=== PATIENT | male | born 1960 | race Caucasian/White ===

== ENCOUNTER 2018-01-19 01:29 | Emergency (ER) | payer OTHER ==
[~2018-01-19] VITALS: Ht 177.8 cm; Wt 75.8 kg
[2018-01-19 01:52] LABS: BASOPHIL (%) 0.7 % (0-1); BASOPHIL COUNT 0.1 K/uL (0-0.1); EOSINOPHIL (%) 2.2 % (0-5); EOSINOPHIL COUNT 0.3 K/uL (0-0.3); HEMATOCRIT 43.8 % (38.0-50.0); HEMOGLOBIN 15.4 G/DL (12.5-16.6); IMMATURE GRANULOCYTE (%) 1.1 % (0.0-0.7); LYMPHOCYTE (%) 21.4 % (15-42); LYMPHOCYTE COUNT 2.7 K/uL (1.0-2.8); MCH 32.2 PG (29.0-34.0); MCHC 35.2 G/DL (30.0-36.0); MCV 91.6 FL (86-99); MONOCYTE (%) 5.1 % (3-12); MONOCYTE COUNT 0.6 K/uL (0-0.8); NEUTROPHIL (%) 69.5 % (45-76); NEUTROPHIL COUNT 8.6 K/uL (1.8-6.4); PLATELET COUNT 248 K/uL (156-360); RBC DIS.WIDTH-SD 40.4 % (39-53); RED BLOOD COUNT 4.78 M/uL (4.00-5.50); WHITE BLOOD COUNT 12.4 K/uL (4.1-10.2)
[2018-01-19 02:00] LABS: AMYLASE 233 IU/L (1-118); CHLORIDE 103 mEq/L (99-109)
[2018-01-19 02:01] LABS: SODIUM 136 mEq/L (136-147)
[2018-01-19 02:02] LABS: GLUCOSE 103 mg/dL (70-99)
[2018-01-19 02:05] LABS: SERUM ETHYL ALCOHOL 209 mg/dL
[2018-01-19 02:06] LABS: CREATININE 0.9 mg/dL (0.6-1.3); GFR ESTIMATE (CALCULATED) > 59 mL/min/ (58.99-99999)
[2018-01-19 02:07] LABS: UREA NITROGEN (BUN) 11 mg/dL (9-23)
[2018-01-19 02:09] LABS: LIPASE 34 U/L (1.0-51.0)
[2018-01-19 03:00] LABS: INTER. NORMALIZED RATIO 0.9
[2018-01-19 03:03] LABS: PTT 25.8 SEC (25-37)
== END 2018-01-19 04:29 | disposition short-term general hospital (02) ==
LOC: TRA 01:29
PROVIDERS: Emergency Medicine
PROC: 3E0234Z Introduction of Serum, Toxoid and Vaccine into Muscle, Percutaneous Approach (ICD-10-PCS; principal; 2018-01-19)
DX: S05.41XA Penetrating wound of orbit with or without foreign body, right eye, initial encounter (principal); S22.41XA Multiple fractures of ribs, right side, initial encounter for closed fracture; S22.019A Unspecified fracture of first thoracic vertebra, initial encounter for closed fracture; S12.650A Other traumatic displaced spondylolisthesis of seventh cervical vertebra, initial encounter for closed fracture; S02.40EA Zygomatic fracture, right side, initial encounter for closed fracture; S02.19XA Other fracture of base of skull, initial encounter for closed fracture; S02.412A LeFort II fracture, initial encounter for closed fracture; S02.413A LeFort III fracture, initial encounter for closed fracture; S02.611A Fracture of condylar process of right mandible, initial encounter for closed fracture; S06.5X0A Traumatic subdural hemorrhage without loss of consciousness, initial encounter; V28.4XXA Motorcycle driver injured in noncollision transport accident in traffic accident, initial encounter; Y92.415 Exit ramp or entrance ramp of street or highway as the place of occurrence of the external cause; F10.129 Alcohol abuse with intoxication, unspecified; Y90.7 Blood alcohol level of 200-239 mg/100 ml; R94.8 Abnormal results of function studies of other organs and systems; Z23 Encounter for immunization
CPT/HCPCS: 70450; 70486; 71260; 72125; 72129; 72132; 74177; 80048; 81003; 82150; 83690; 85025; 85610; 85730; 86850; 86900; 86901; 99281; 99285; G0480; J0690; J1170; J2405; J3010; J7050